=== PATIENT | female | born 1995 | race Hispanic/Latino ===

== ENCOUNTER 2018-10-06 21:42 | Emergency (ER) | payer OTHER ==
[2018-10-06 22:30] LABS: Absolute Lymphocytes (CBC) 2.2 K/uL (0.7-4.9); Absolute Monocytes 0.8 K/uL (0.1-1.3); Absolute Neutrophil 9.8 K/uL (1.8-8.0); Basophils % 0.5 % (0-1.3); Eosinophils % 0.2 % (0-4.4); Hematocrit 41.9 % (36.0-45.0); Lymphocytes % 16.9 % (15.3-44.8); MPV 8.7 fL (7.6-11.3); Monocytes % 6.2 % (3.3-12.3); RBC Red Blood Cell Count 4.69 M/uL (3.86-4.86)
[2018-10-06 22:39] LABS: Protime INR 1.16
[2018-10-06 22:44] LABS: Potassium 3.7 mmol/L (3.5-5.1)
--- NOTE | 2018-10-06 22:46 | ER ---
Nurse's Notes [facility] Name: Johanna Pope Age: 23 yrs Sex: Female : 1995 Arrival Date: 10/06/2018 Time: 21:46 Bed 13 Private MD: Diagnosis: Spontaneous ecchymoses Presentation: 10/06 21:59 Presenting complaint: Patient states: "I've been getting all these bruises on my legs aj1 the past 2 days, and I don't know why" Denies injury to legs. Transition of care: patient was not received from another setting of care. Onset of symptoms was October 04, 2018. Risk Assessment: Do you want to hurt yourself or someone else? Patient reports no desire to harm self or others. Initial Sepsis Screen: Does the patient meet any 2 criteria? No. Patient's initial sepsis screen is negative. Does the patient have a suspected source of infection? No. Patient's initial sepsis screen is negative. Care prior to arrival: None. 21:59 Method Of Arrival: Ambulatory aj1 21:59 Acuity: [facility] 3 aj1 Triage Assessment: 22:01 General: Appears in no apparent distress. comfortable, Behavior is calm, cooperative, aj1 appropriate for age. Pain: Complains of pain in right leg and left leg Pain currently is 2 out of 10 on a pain scale. Neuro: Level of Consciousness is awake, alert, obeys commands. Cardiovascular: Patient's skin is warm and dry. Respiratory: Airway is patent Respiratory effort is even, unlabored, Respiratory pattern is regular, symmetrical. 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 - Social history:: Smoking status: Patient/guardian denies using tobacco. - Ebola Screening: : Patient denies travel to an Ebola-affected area in the 21 days before illness onset. Screenin:10 Abuse screen: Denies threats or abuse. Denies injuries from another. Nutritional cc3 screening: No deficits noted. Tuberculosis screening: No symptoms or risk factors identified. Fall Risk Ambulatory Aid- None/Bed Rest/Nurse Assist (0 pts). Gait- Normal/Bed Rest/Wheelchair (0 pts) Mental Status- Oriented to own ability (0 pts). Assessment: 22:10 Reassessment: Patient appears in no apparent distress at this time. Patient and/or cc3 family updated on plan of care and expected duration. Pain level reassessed. Patient is alert, oriented x 3, equal unlabored respirations, skin warm/dry/pink. 23:00 Reassessment: Patient appears in no apparent distress at this time. Patient and/or cc3 family updated on plan of care and expected duration. Pain level reassessed. Patient is alert, oriented x 3, equal unlabored respirations, skin warm/dry/pink. 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 IV cannula removed and patient left ER vitally stable and ambulatory with her family. Vital Signs: 22:01 BP 146 / 84; Pulse 70; Resp 18; Temp 97.9; Pulse Ox 100% on R/A; Weight 77.11 kg (R); aj1 Height 5 ft. 6 in. (167.64 cm); Pain 2/10; 22:45 BP 138 / 87; Pulse 72; Resp 17 S; Pulse Ox 100% on R/A; cc3 22:01 Body Mass Index 27.44 (77.11 kg, 167.64 cm) aj1 ED Course: 21:46 Patient arrived in ED. es 21:56 [facility]C [facility] kb 21:56 Willi Contreras MD is Attending Physician. kb 22:00 Triage completed. aj1 22:01 Arm band placed on Patient placed in waiting room. aj1 22:10 Naomi Lombardi is Primary Nurse. cc3 22:10 Patient has correct armband on for positive identification. Bed in low position. Call cc3 light in reach. Side rails up X 1. Pulse ox on. NIBP on. 22:15 Inserted saline lock: 20 gauge in left antecubital area, using aseptic technique. Blood cc3 collected. 23:00 No provider procedures requiring assistance completed. IV discontinued, intact, cc3 bleeding controlled, No redness/swelling at site. Pressure dressing applied. Administered Medications: No medications were administered Outcome: 22:46 Discharge ordered by . kb 23:00 Discharged to home ambulatory, with family. cc3 23:00 Condition: stable 23:00 Discharge instructions given to patient, Instructed on discharge instructions, follow up and referral plans. Demonstrated understanding of instructions, follow-up care. 23:03 Patient left the ED. cc3 Signatures: Jaylin Louis, SPECK DYER-C SPECK DYER-CkLudivina Navarro RN RN aj1 Emy Greene Charlene cc3
--- NOTE | 2018-10-06 22:46 | EDPHYS ---
Physician Documentation [facility] Name: Johanna Pope Age: 23 yrs Sex: Female : 1995 Arrival Date: 10/06/2018 Time: 21:46 Bed 13 Private MD: ED Physician Willi Contreras HPI: 10/06 22:10 This 23 yrs old Female presents to ER via Ambulatory with complaints of Leg kb Pain. 22:10 The patient presents with bruising. The complaints affect the right leg and left leg. kb Context: The problem was sustained at an unknown site, the patient can fully bear weight, the patient is able to ambulate, Problem is a result from a previous injury: No. Onset: The symptoms/episode began/occurred 2 day(s) ago. Modifying factors: The symptoms are alleviated by nothing. the symptoms are aggravated by nothing. Associated signs and symptoms: Pertinent positives: bruising. Treatment prior to arrival includes: no previous treatment. Severity of symptoms: At their worst the symptoms were moderate, in the emergency department the symptoms are unchanged. The patient has not experienced similar symptoms in the past. The patient has not recently seen a physician. Pt reports bruising to bilateral lower extremities that started 2 days ago. Denies any trauma. . 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 - Social history:: Smoking status: Patient/guardian denies using tobacco. - Ebola Screening: : Patient denies travel to an Ebola-affected area in the 21 days before illness onset. ROS: 22:11 Constitutional: Negative for fever, chills, and weight loss, Neck: Negative for injury, kb pain, and swelling, Cardiovascular: Negative for chest pain, palpitations, and edema, Respiratory: Negative for shortness of breath, cough, wheezing, and pleuritic chest pain, Abdomen/GI: Negative for abdominal pain, nausea, vomiting, diarrhea, and constipation, Back: Negative for injury and pain, MS/Extremity: Negative for injury and deformity, Neuro: Negative for headache, weakness, numbness, tingling, and seizure. 22:11 Skin: Positive for ecchymosis. Exam: 22:11 Constitutional: This is a well developed, well nourished patient who is awake, alert, kb and in no acute distress. Head/Face: Normocephalic, atraumatic. Chest/axilla: Normal chest wall appearance and motion. Nontender with no deformity. No lesions are appreciated. Cardiovascular: Regular rate and rhythm with a normal S1 and S2. No gallops, murmurs, or rubs. Normal PMI, no JVD. No pulse deficits. Respiratory: Lungs have equal breath sounds bilaterally, clear to auscultation and percussion. No rales, rhonchi or wheezes noted. No increased work of breathing, no retractions or nasal flaring. Abdomen/GI: Soft, non-tender, with normal bowel sounds. No distension or tympany. No guarding or rebound. No evidence of tenderness throughout. MS/ Extremity: Pulses equal, no cyanosis. Neurovascular intact. Full, normal range of motion. Neuro: Awake and alert, GCS 15, oriented to person, place, time, and situation. Cranial nerves II-XII grossly intact. Motor strength 5/5 in all extremities. Sensory grossly intact. Cerebellar exam normal. Normal gait. 22:11 Skin: Appearance: ecchymosis, noted on the, right leg and left leg, that are moderate, and are scattered, of the right leg and left leg. Vital Signs: 22:01 BP 146 / 84; Pulse 70; Resp 18; Temp 97.9; Pulse Ox 100% on R/A; Weight 77.11 kg (R); aj1 Height 5 ft. 6 in. (167.64 cm); Pain 2/10; 22:45 BP 138 / 87; Pulse 72; Resp 17 S; Pulse Ox 100% on R/A; cc3 22:01 Body Mass Index 27.44 (77.11 kg, 167.64 cm) aj1 MDM: 22:03 Patient medically screened. kb 22:11 Data reviewed: vital signs, nurses notes. Data interpreted: Pulse oximetry: on room air kb is 100 %. Interpretation: normal. 22:44 Counseling: I had a detailed discussion with the patient and/or guardian regarding: the kb historical points, exam findings, and any diagnostic results supporting the discharge/admit diagnosis, lab results, the need for outpatient follow up, a family practitioner, to return to the emergency department if symptoms worsen or persist or if there are any questions or concerns that arise at home. 10/06 22:04 Order name: Protime (+inr); Complete Time: 22:44 kb 10/06 22:04 Order name: Ptt, Activated; Complete Time: 22:44 kb 10/06 22:04 Order name: CBC with Diff; Complete Time: 22:44 kb 10/06 22:04 Order name: Basic Metabolic Panel; Complete Time: 22:44 kb Administered Medications: No medications were administered Disposition: 10/06/18 22:46 Discharged to Home. Impression: Spontaneous ecchymoses. - Condition is Stable. - Medication Reconciliation Form, Thank You Letter, Antibiotic Education, Prescription Opioid Use form. - Follow up: Emergency Department; When: As needed; Reason: Worsening of condition. Follow up: Private Physician; When: 2 - 3 days; Reason: Recheck today's complaints, Continuance of care, Re-evaluation by your physician. Addendum: 10/09/2018 19:34 Co-signature as Attending Physician, Willi Contreras MD. g s Signatures: Dispatcher [employer] EDMS Jaylin Louis, SWEATBAND SHAPER-C SWEATBAND SHAPER-Ludivina Britt RN RN aj1 Willi Contreras MD MD gs Cordel, Charlene cc3 Corrections: (The following items were deleted from the chart) 10/06 23:03 22:46 10/06/2018 22:46 Discharged to Home. Impression: Spontaneous ecchymoses. cc3 Condition is Stable. Forms are Medication Reconciliation Form, Thank You Letter, Antibiotic Education, Prescription Opioid Use. Follow up: Emergency Department; When: As needed; Reason: Worsening of condition. Follow up: Private Physician; When: 2 - 3 days; Reason: Recheck today's complaints, Continuance of care, Re-evaluation by your physician. kb
== END 2018-10-06 23:03 | disposition home or self-care (01) ==
LOC: ER 21:42
DX: R23.3 Spontaneous ecchymoses (principal)
CPT/HCPCS: 36415; 80048; 85025; 85610; 85730; 99283

== ENCOUNTER 2022-08-28 07:02 | Emergency (ER) | payer OTHER, SELFPAY ==
[2022-08-28 07:51] LABS: Absolute Lymphocytes (CBC) 1.5 K/uL (0.7-4.9); Hematocrit 41.5 % (36.0-45.0); Lymphocytes % 13.7 % (15.3-44.8); MCV 90.2 fL (80-100); MPV 8.1 fL (7.6-11.3); RBC Red Blood Cell Count 4.61 M/uL (3.86-4.86)
[2022-08-28 08:06] LABS: Urine Blood 2+ (Negative); Urine Glucose Negative (Negative); Urine Protein Negative (Negative); Urine Specific Gravity >=1.030 (1.005-1.030); Urine pH 5.5 (5.0-7.0)
[2022-08-28 08:18] LABS: Urine Bacteria None Seen /HPF (<20); Urine Mucus Slight /HPF (None Seen); Urine RBC <5 /HPF (None Seen)
--- NOTE | 2022-08-28 09:17 | EDPHYS ---
Physician Documentation [facility] Name: Johanna Chahal Age: 27 yrs Sex: Female : 1995 Arrival Date: 08/28/2022 Time: 07:07 Bed 18 Private MD: ED Physician Jesus Manuel Chaney HPI: 08/28 08:44 This 27 yrs old Female presents to ER via Ambulatory with complaints of rn Vaginal Bleeding, + Preg <12wks, Abdominal Cramping. 08:44 The patient presents to the emergency department with abdominal pain. The estimated rn gestational age is 2 weeks. course: Leakage of Fluid: none appreciated, Ultrasound: the patient has not had an ultrasound. Previous pregnancies: in previous pregnancies patient has had preeclampsia. Associated signs and symptoms: Pertinent positives: vaginal bleeding, Pertinent negatives: chest pain, fever, seizure, vaginal discharge. The patient has not experienced similar symptoms in the past. The patient has not recently seen a physician. Pt reports approx 2-3 weeks , not sure of LMP but thinks 5-6 weeks ago. Reports 2 days of vaginal spotting that has now progressed to heavier bleeding. . No trauma. No blood thinners. . Historical: - Allergies: 07:12 No Known Allergies; ko1 - Home Meds: 07:12 Vitamin Oral tab [Active]; ko1 - Immunization history:: Adult Immunizations unknown. - Social history:: Smoking status: Patient denies any tobacco usage or history of. - Family history:: not pertinent. - Hospitalizations: : No recent hospitalization is reported. ROS: 08:44 Constitutional: Negative for fever, chills, and weight loss, Eyes: Negative for injury, rn pain, redness, and discharge, Neck: Negative for injury, pain, and swelling, Cardiovascular: Negative for chest pain, palpitations, and edema, Respiratory: Negative for shortness of breath, cough, wheezing, and pleuritic chest pain, Abdomen/GI: + abd cramping Back: Negative for injury and pain, : + vaginal bleeding MS/Extremity: Negative for injury and deformity, Skin: Negative for injury, rash, and discoloration, Neuro: Negative for headache, weakness, numbness, tingling, and seizure. Exam: 08:44 Constitutional: This is a well developed, well nourished patient who is awake, alert, rn and in no acute distress. Head/Face: Normocephalic, atraumatic. Cardiovascular: Regular rate and rhythm. No pulse deficits. Respiratory: No increased work of breathing, no retractions or nasal flaring. Abdomen/GI: soft, non-tender Skin: Warm, dry MS/ Extremity: Pulses equal, no cyanosis. Neuro: Awake and alert, GCS 15 Vital Signs: 07:07 BP 126 / 80; Pulse 63; Resp 18; Temp 98.2; Pulse Ox 100% ; Weight 74.84 kg; Height 5 ko1 ft. 6 in. (167.64 cm); Pain 0/10; 08:29 BP 131 / 76; Pulse 62; Resp 17; Pulse Ox 100% on R/A; kr3 09:19 BP 124 / 76; Pulse 51; Resp 17; Pulse Ox 100% on R/A; kr3 07:07 Body Mass Index 26.63 (74.84 kg, 167.64 cm) ko1 MDM: 07:07 Patient medically screened. rn 09:14 Differential diagnosis: ectopic . 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 Counseling: I had a detailed discussion with the patient and/or guardian regarding: the historical points, exam findings, and any diagnostic results supporting the discharge/admit diagnosis, lab results, radiology results, the need for outpatient follow up, to return to the emergency department if symptoms worsen or persist or if there are any questions or concerns that arise at home. Special discussion: I discussed with the patient/guardian in detail that at this point there is no indication for admission to the hospital. It is understood, however, that if the symptoms persist or worsen the patient needs to return immediately for re-evaluation. Based on the history and exam findings, there is no indication for further emergent testing or inpatient evaluation. I discussed with the patient/guardian the need to see the OB Gyne specialist for further evaluation of the symptoms. ED course: Pt with HCG 47, no IUP visualized but also no evidence of ectopic . Blood type A+, will dc home with return precautions and repeat hcg in 48 hours. . 08/28 07:15 Order name: Abo/rh Typing; Complete Time: 08:58 rn 08/28 07:15 Order name: Basic Metabolic Panel; Complete Time: 08:58 rn 08/28 07:15 Order name: CBC with Diff; Complete Time: 08:58 rn 08/28 07:15 Order name: Quantitative Hcg; Complete Time: 08:58 rn 08/28 07:15 Order name: Urine Microscopic Only; Complete Time: 08:58 rn 08/28 08:06 Order name: Urine Dipstick-Ancillary; Complete Time: 08:58 EDMS 08/28 07:15 Order name: US Transvaginal Ob rn 08/28 07:15 Order name: IV Saline Lock; Complete Time: 08:14 rn 08/28 07:15 Order name: Labs collected and sent; Complete Time: 08:14 rn 08/28 07:15 Order name: NPO; Complete Time: 07:16 rn 08/28 07:15 Order name: Urine Dipstick-Ancillary (obtain specimen); Complete Time: 08:14 rn 08/28 07:15 Order name: Urine Test (obtain specimen); Complete Time: 08:14 rn 08/28 08:19 Order name: Urine --Ancillary (enter results); Complete Time: 08:58 eb Administered Medications: No medications were administered Disposition Summary: 08/28/22 09:16 Discharge Ordered Location: Home rn Problem: new rn Symptoms: are unchanged rn Condition: Stable rn Diagnosis - Threatened rn Followup: rn - With: Private Physician - When: 48 Hours - Reason: Repeat Beta-HCG (48 Hours) Discharge Instructions: - Discharge Summary Sheet rn - Threatened Miscarriage rn - Vaginal Bleeding During , First Trimester rn Forms: - Medication Reconciliation Form rn - Thank You Letter rn - 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
--- NOTE | 2022-08-28 09:17 | ER ---
Nurse's Notes [facility] Name: Johanna Chahal Age: 27 yrs Sex: Female : 1995 Arrival Date: 08/28/2022 Time: 07:07 Bed 18 Private MD: Diagnosis: Threatened Presentation: 08/28 07:07 Chief complaint: Patient states: i am 2-3 weeks , I have been spotting for 2-3 ko1 days and this morning I have cramps and its much heavier bleeding, like I am on my period. Coronavirus screen: At this time, the client does not indicate any symptoms associated with coronavirus-19. Ebola Screen: No symptoms or risks identified at this time. Initial Sepsis Screen: Does the patient meet any 2 criteria? No. Patient's initial sepsis screen is negative. Does the patient have a suspected source of infection? No. Patient's initial sepsis screen is negative. Risk Assessment: Do you want to hurt yourself or someone else? Patient reports no desire to harm self or others. Onset of symptoms was August 28, 2022. 07:07 Method Of Arrival: Ambulatory ko1 07:07 Acuity: [facility] ko1 Triage Assessment: 07:12 General: Appears in no apparent distress. comfortable, Behavior is calm, cooperative, ko1 appropriate for age. Pain: Denies pain. : No deficits noted. Historical: - Allergies: 07:12 No Known Allergies; ko1 - Home Meds: 07:12 Vitamin Oral tab [Active]; ko1 - Immunization history:: Adult Immunizations unknown. - Social history:: Smoking status: Patient denies any tobacco usage or history of. - Family history:: not pertinent. - Hospitalizations: : No recent hospitalization is reported. Screenin:25 [facility] ED Fall Risk Assessment (Adult) History of falling in the last 3 months, kr3 including since admission No falls in past 3 months (0 pts) Confusion or Disorientation No (0 pts) Intoxicated or Sedated No (0 pts) Impaired Gait No (0 pts) Mobility Assist Device Used No (0 pt) Altered Elimination No (0 pt) Score/Fall Risk Level 0 - 2 = Low Risk. Abuse screen: Denies threats or abuse. Nutritional screening: No deficits noted. Tuberculosis screening: No symptoms or risk factors identified. Assessment: 07:10 Obstetrical Assessment: General assessment: awake and alert, skin warm and dry, kr3 respirations even and unlabored, see triage note. 09:19 Reassessment: Patient appears in no apparent distress at this time. Patient and/or kr3 family updated on plan of care and expected duration. Pain level reassessed. Patient is alert, oriented x 3, equal unlabored respirations, skin warm/dry/pink. Vital Signs: 07:07 BP 126 / 80; Pulse 63; Resp 18; Temp 98.2; Pulse Ox 100% ; Weight 74.84 kg; Height 5 ko1 ft. 6 in. (167.64 cm); Pain 0/10; 08:29 BP 131 / 76; Pulse 62; Resp 17; Pulse Ox 100% on R/A; kr3 09:19 BP 124 / 76; Pulse 51; Resp 17; Pulse Ox 100% on R/A; kr3 07:07 Body Mass Index 26.63 (74.84 kg, 167.64 cm) ko1 ED Course: 07:07 Patient arrived in ED. ja2 07:07 Jesus Manuel Chaney MD is Attending Physician. rn 07:07 Jeannette Hutchinson, WILL is Primary Nurse. ko1 07:12 Triage completed. ko1 07:12 Arm band placed on right wrist. Patient placed in an exam room, Patient notified of ko1 wait time. 07:15 Bed in low position. Call light in reach. Side rails up X 1. kr3 07:42 Initial lab(s) drawn, by me. Inserted saline lock: 22 gauge in left antecubital area, tm3 using aseptic technique. 08:08 US Transvaginal Ob In Process Unspecified. EDMS 08:10 Urine collected: clean catch specimen, clear. tm3 09:26 No provider procedures requiring assistance completed. IV discontinued, intact, kr3 bleeding controlled, No redness/swelling at site. Pressure dressing applied. Administered Medications: No medications were administered Medication: 09:27 VIS not applicable for this client. kr3 Outcome: 09:16 Discharge ordered by . rn 09:26 Discharged to home ambulatory. kr3 09:26 Condition: stable 09:26 Discharge instructions given to patient, Instructed on discharge instructions, follow up and referral plans. Demonstrated understanding of instructions, follow-up care. 09:28 Patient left the ED. kr3 Signatures: Dispatcher [employer] Juliano Clayton tm3 Jesus Manuel Chaney MD MD rn Fransisca Hu Kelley RN RN kr3 Jeannette Hutchinson RN RN ko1 Corrections: (The following items were deleted from the chart) 08:28 08:27 Obstetrical Assessment: General assessment: awake and alert, skin warm and dry, kr3 respirations even and unlabored, see triage note. kr3
[2022-08-28 09:46] VITALS: TEMP 98.2; O2SAT 100
[2022-08-28 09:53] VITALS: BP 124/76
--- NOTE | 2022-08-28 10:09 | RAD REPORT ---
EXAM DESCRIPTION: US - Transvaginal OB - 08/28/2022 8:06 am CLINICAL HISTORY: Abd cramping, COMPARISON: No comparisons FINDINGS: The uterus is normal sized. Thickened endometrial stripe noted measuring 6 mm. The maternal adnexa and ovaries are within normal limits. 33 x 30 mm cyst right ovary. Normal Doppler blood flow was demonstrated to both ovaries. IMPRESSION: No IUP is seen. In the setting of a positive HCG, this would indicate of unkno wn location. Serial follow-up HCG levels as well as follow-up pelvic sonography would be recommended. 33 mm cyst is present right ovary.
== END 2022-08-28 09:28 | disposition home or self-care (01) ==
LOC: ER 07:02
DX: O20.0 Threatened abortion (principal)
CPT/HCPCS: 36415; 76817; 80048; 81003; 81015; 81025; 84702; 85025; 86900; 86901; 99283

== ENCOUNTER 2022-08-30 08:15 | Emergency (ER) | payer SELFPAY ==
--- NOTE | 2022-08-30 09:42 | EDPHYS ---
Physician Documentation [facility] – [place], [place] Name: Johanna Chahal Age: 27 yrs Sex: Female : 1995 Arrival Date: 08/30/2022 Time: 08:17 Bed 20 Private MD: ED Physician Av Alcaraz HPI: 08/30 08:20 This 27 yrs old Female presents to ER via Ambulatory with complaints of repeat jmm hcg. 08:20 The patient presents with vaginal bleeding that is. Onset: The symptoms/episode jmm began/occurred gradually. Modifying factors: The symptoms are alleviated by nothing, the symptoms are aggravated by nothing. Is a 27-year-old female with no chronic medical conditions presents emerged department with complaints of pelvic cramping and vaginal bleeding. Patient was evaluated 2 days ago and advised to repeat quantitative hCG in 2 days. Denies any weakness or fatigue. Denies fever.. Historical: - Allergies: 08:25 No Known Allergies; ld1 - PMHx: 08:25 None; ld1 - PSHx: 08:25 None; ld1 - Immunization history:: Adult Immunizations up to date, Client reports receiving the 2nd dose of the Covid vaccine. - Social history:: Smoking status: Patient denies any tobacco usage or history of. Patient/guardian denies using alcohol. ROS: 08:20 Constitutional: Negative for fever, chills, and weight loss, Cardiovascular: Negative jmm for chest pain, palpitations, and edema, Respiratory: Negative for shortness of breath, cough, wheezing, and pleuritic chest pain. 08:20 Abdomen/GI: Positive for 08:20 All other systems are negative. Exam: 08:20 Constitutional: This is a well developed, well nourished patient who is awake, alert, jmm and in no acute distress. Head/Face: atraumatic. Eyes: EOMI, no conjunctival erythema appreciated ENT: Moist Mucus Membranes Neck: Trachea midline, Supple Chest/axilla: Normal chest wall appearance and motion. Cardiovascular: Regular rate and rhythm. No edema appreciated Respiratory: Normal respirations, no respiratory distress appreciated Abdomen/GI: Non distended Back: Normal ROM Skin: General appearance color normal MS/ Extremity: Moves all extremities, no obvious deformities appreciated, no edema noted to the lower extremities Neuro: Awake and alert Psych: Behavior is normal, Mood is normal, Patient is cooperative and pleasant Vital Signs: 08:24 BP 114 / 79; Pulse 73; Resp 18; Temp 97.9(O); Pulse Ox 100% on R/A; Weight 67.59 kg; ld1 Height 5 ft. 4 in. (162.56 cm); Pain 0/10; 09:41 BP 119 / 82; Pulse 74; Resp 18; Pulse Ox 100% on R/A; ld1 08:24 Body Mass Index 25.58 (67.59 kg, 162.56 cm) ld1 MDM: 08:25 Patient medically screened. [facility] 09:39 Data reviewed: vital signs, nurses notes. [facility] 09:41 Care significantly affected by the following chronic conditions: . Counseling: mino I had a detailed discussion with the patient and/or guardian regarding: the historical points, exam findings, and any diagnostic results supporting the discharge/admit diagnosis, lab results, the need for outpatient follow up, to return to the emergency department if symptoms worsen or persist or if there are any questions or concerns that arise at home. ED course: Patient is alert nontoxic in the ED. Vital signs are normal. Patient advised follow-up with [facility] for further evaluation otherwise given strict return precautions. Patient understood and agrees plan of care.. 08/30 08:19 Order name: HCG-Quantitative; Complete Time: 09:33 [facility] Administered Medications: No medications were administered Disposition: 10:24 Co-signature as Attending Physician, Av Alcaraz MD I agree with the assessment and kdr plan of care. Disposition Summary: 08/30/22 09:42 Discharge Ordered Location: Home [facility] Condition: Stable [facility] Diagnosis - Threatened [facility] Followup: [facility] - With: Horace Garcia MD - When: 2 - 3 days - Reason: Recheck today's complaints, Continuance of care, Re-evaluation by your physician Discharge Instructions: - Discharge Summary Sheet [facility] - Threatened Miscarriage [facility] Forms: - Medication Reconciliation Form [facility] - Thank You Letter [facility] - Antibiotic Education [facility] - Prescription Opioid Use victor hugo 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
--- NOTE | 2022-08-30 09:42 | ER ---
Nurse's Notes [facility] Name: Johanna Chahal Age: 27 yrs Sex: Female : 1995 Arrival Date: 08/30/2022 Time: 08:17 Bed 20 Private MD: Diagnosis: Threatened Presentation: 08/30 08:24 Chief complaint: Patient states: I was here on Wednesday - I believe I had a miscarriage ld1 and I am just trying to follow up and see if I am still . Coronavirus screen: At this time, the client does not indicate any symptoms associated with coronavirus-19. Ebola Screen: No symptoms or risks identified at this time. Initial Sepsis Screen: Does the patient meet any 2 criteria? No. Patient's initial sepsis screen is negative. Does the patient have a suspected source of infection? No. Patient's initial sepsis screen is negative. Risk Assessment: Do you want to hurt yourself or someone else? Patient reports no desire to harm self or others. Onset of symptoms was August 30, 2022. 08:24 Method Of Arrival: Ambulatory ld1 08:24 Acuity: [facility] 4 ld1 Triage Assessment: 08:25 General: Appears in no apparent distress. comfortable, Behavior is calm, cooperative, ld1 appropriate for age. Pain: Denies pain. EENT: No signs and/or symptoms were reported regarding the EENT system. Neuro: Level of Consciousness is awake, alert, obeys commands, Oriented to person, place, time, situation. Cardiovascular: Capillary refill < 3 seconds Patient's skin is warm and dry. Respiratory: Airway is patent Respiratory effort is even, unlabored. GI: Abdomen is flat, non-distended. : No signs and/or symptoms were reported regarding the genitourinary system. Derm: No signs and/or symptoms reported regarding the dermatologic system. Musculoskeletal: No signs and/or symptoms reported regarding the musculoskeletal system. Historical: - Allergies: 08:25 No Known Allergies; ld1 - PMHx: 08:25 None; ld1 - PSHx: 08:25 None; ld1 - Immunization history:: Adult Immunizations up to date, Client reports receiving the 2nd dose of the Covid vaccine. - Social history:: Smoking status: Patient denies any tobacco usage or history of. Patient/guardian denies using alcohol. Screenin:26 [facility] ED Fall Risk Assessment (Adult) History of falling in the last 3 months, ld1 including since admission No falls in past 3 months (0 pts). Abuse screen: Denies threats or abuse. Denies injuries from another. Nutritional screening: No deficits noted. Tuberculosis screening: No symptoms or risk factors identified. Assessment: 08:26 Reassessment: See triage assessment. ld1 Vital Signs: 08:24 BP 114 / 79; Pulse 73; Resp 18; Temp 97.9(O); Pulse Ox 100% on R/A; Weight 67.59 kg; ld1 Height 5 ft. 4 in. (162.56 cm); Pain 0/10; 09:41 BP 119 / 82; Pulse 74; Resp 18; Pulse Ox 100% on R/A; ld1 08:24 Body Mass Index 25.58 (67.59 kg, 162.56 cm) ld1 ED Course: 08:17 Patient arrived in ED. as 08:18 Kyle Ballesteros PA is PHCP. [facility] 08:18 Av Alcaraz MD is Attending Physician. [facility] 08:25 Triage completed. ld1 08:25 Arm band placed on right wrist. ld1 08:26 Patient has correct armband on for positive identification. Placed in gown. Bed in low ld1 position. Call light in reach. Side rails up X2. monitor tech on. Pulse ox on. NIBP on. Door closed. Noise minimized. Warm blanket given. 08:26 No provider procedures requiring assistance completed. ld1 08:32 Gill Osorio, WILL is Primary Nurse. ld1 08:32 HCG-Quantitative Sent. ld1 08:48 Per Delicia in the Lab there will be a delay on the lab ordered/ the machine is doing a eb maintenance. 09:41 Horace Garcia MD is Referral Physician. jm 09:45 Patient did not have IV access during this emergency room visit. ld1 Administered Medications: No medications were administered Medication: 08:26 VIS not applicable for this client. ld1 Outcome: 09:42 Discharge ordered by . jm 09:45 Discharged to home ambulatory, with family. ld1 09:45 Condition: stable 09:45 Discharge instructions given to patient, family, Instructed on discharge instructions, follow up and referral plans. Demonstrated understanding of instructions, follow-up care. 09:45 Patient left the ED. ld1 Signatures: Kyle Ballesteros PA PA jmm Martinez, Amelia as Botello, Elizabeth eb Dibbern, Lauren, WILL RN ld1
[2022-08-30 09:50] VITALS: TEMP 97.9; O2SAT 100
[2022-08-30 09:51] VITALS: BP 119/82
== END 2022-08-30 09:45 | disposition home or self-care (01) ==
LOC: ER 08:15
DX: O20.0 Threatened abortion (principal)
CPT/HCPCS: 36415; 84702; 99284